=== PATIENT | male | born 1985 | race Caucasian/White ===

== ENCOUNTER 2017-06-08 21:05 | Emergency (ER) | payer MEDICAID ==
[~2017-06-08] VITALS: Ht 162.6 cm; Wt 64.4 kg
[~2017-06-08 21:05] MED LIST: NO HOME MEDS; ONDA4TAB6 PO
[2017-06-08] MEDS ORDERED: sulfamethoxazole/trimethoprim DS (800/160mg) tablet PO ONE (22:15)
[2017-06-08] MEDS ORDERED: SULF1TAB49 PO (22:15)
[2017-06-08 22:32] VITALS: BP 160/87
== END 2017-06-08 22:38 | disposition home or self-care (01) ==
LOC: ER 21:06
DX: L03.011 Cellulitis of right finger (principal); F15.10 Other stimulant abuse, uncomplicated; Z86.14 Personal history of Methicillin resistant Staphylococcus aureus infection; Z79.899 Other long term (current) drug therapy
CPT/HCPCS: 99283; A6449

== ENCOUNTER 2018-03-20 20:41 | Emergency (ER) | payer MEDICAID ==
[~2018-03-20] VITALS: Ht 162.6 cm; Wt 66.0 kg
[2018-03-20 20:45] VITALS: BP 143/96
== END 2018-03-20 22:39 | disposition home or self-care (01) ==
LOC: ER 20:41
DX: L02.01 Cutaneous abscess of face (principal); F15.90 Other stimulant use, unspecified, uncomplicated; Z86.14 Personal history of Methicillin resistant Staphylococcus aureus infection
CPT/HCPCS: 10060; 99284